=== PATIENT | female | born 1980 | race Caucasian/White ===

== ENCOUNTER 2016-11-21 22:15 | Emergency (ER) | payer MEDICAID ==
[~2016-11-21] VITALS: Ht 154.9 cm; Wt 103.0 kg
[~2016-11-21 22:15] MED LIST: CEPH-443 PO; HYDR-3498 PO; HYDR-906 PO; IBUP-1542 PO; INSU100C SQ; NPH,100V SQ; ONDA4TAB14 PO; PREN-39 PO
[2016-11-21 22:58] VITALS: Ht 154.9 cm; Wt 103.0 kg
[2016-11-22] MEDS ORDERED: UDROBDM PO (02:47)
--- NOTE | 2016-11-22 02:47 | ERD ---
ER Documentation Chief Complaint Date/Time DATE: 11/22/16 TIME: 02:45 Chief Complaint Fever and cough x3 days HPI This 36-year-old female presents to the emergency room for evaluation of a fever , chills and a cough for the past 3 days. The patient does state that she is approximately 16 weeks . She denies any phlegm production and came to the emergency room for further evaluation. She denies any chest pain palpitations or shortness of breath. ROS All systems reviewed and are negative except as per history of present illness. Medications Home Meds Active Scripts Ondansetron (Ondansetron Odt) 4 Mg Tab.rapdis, 4 MG PO Q8 Y for NAUSEA AND/OR VOMITING, #30 TAB Prov:MELLISSA BURK NP 08/19/16 Ibuprofen* (Motrin*) 600 Mg Tab, 600 MG PO Q6H Y for PAIN AND OR ELEVATED TEMP, #30 TAB Prov:MELLISSA BURK NP 08/19/16 Hydrocodone/Acetaminophen ([place] 5-325 Tablet) 1 Each Tablet, 1 TAB PO Q6H Y for PAIN, #20 TAB Prov:MELLISSA BURK NP 08/19/16 Ibuprofen* (Motrin*) 600 Mg Tab, 600 MG PO Q6, #20 TAB Prov:MEREDITH DON MD 11/24/15 Cephalexin* (Keflex*) 500 Mg Capsule, 500 MG PO QID for 10 Days, CAP Prov:MEREDITH DON MD 11/24/15 Hydrocodone Bit-Acetaminophen* ([place]*) 5-325 Mg Tab, 1 TAB PO Q6 Y for PAIN, # 14 TAB Prov:MEREDITH DON MD 11/24/15 Reported Medications Nph, Human Insulin Isophane (Humulin N) 100 Units/Ml Vial, 0 SQ HS, #20 08/12/13 Nph, Human Insulin Isophane (Humulin N) 100 Units/Ml Vial, 0 SQ AM, #20 08/12/13 Insulin Lispro (Humalog) 100 U/Ml Cartridge, 0 SQ DINNER, #14 08/12/13 Insulin Lispro (Humalog) 100 U/Ml Cartridge, 0 SQ AM, #12 08/12/13 Vits W-Ca,Fe,Fa(<1MG) ( Vitamins) 1 Tab Tablet, 1 TAB PO DAILY 08/12/13 Allergies Allergies: Coded Allergies: No Known Drug Allergy (Verified Allergy, Unknown, 08/18/16) Uncoded Allergies: NONE (Allergy, Unknown, 11/24/15) PMhx/Soc Medical and Surgical Hx: pt denies Medical Hx History of Surgery: Yes ( X1) Anesthesia Reaction: No Hx Neurological Disorder: No Hx Respiratory Disorders: No Hx Cardiac Disorders: No Hx Psychiatric Problems: No Hx Miscellaneous Medical Probl: No Hx Alcohol Use: No Hx Substance Use: No Hx Tobacco Use: No Smoking Status: Never smoker Physical Exam Vitals Vital Signs Date Time Temp Pulse Resp B/P Pulse Ox O2 Delivery O2 Flow Rate FiO2 11/21/16 22:58 98.4 80 18 145/80 99 Physical Exam Const: No acute distress Head: Atraumatic Eyes: Normal Conjunctiva ENT: Pharyngeal erythema, no visible exudate, normal External Ears, Nose and Mouth. Neck: Full range of motion..~ No meningismus. Resp: Clear to auscultation bilaterally Cardio: Regular rate and rhythm, no murmurs Abd: Soft, non tender, non distended. Normal bowel sounds Skin: No petechiae or rashes Back: No midline or flank tenderness Ext: No cyanosis, or edema Neur: Awake and alert Psych: Normal Mood and Affect Procedures/MDM This 36-year-old female presents to the ER for evaluation of a fever, and cough. This patient was afebrile here in the emergency room. She was 99% on room air, no visible respiratory distress. Her lungs were clear bilaterally. She did have mild nasal congestion. I advised her she is likely suffering from a viral syndrome and the patient was advised that she can take Robitussin-DM for her cough. She was given Robitussin in the emergency room and will be discharged home with a prescription for Robitussin-DM for upper respiratory infection. Departure Diagnosis: Primary Impression: Acute URI Additional Impression: Cough Condition: Stable NYLA ANTHONY DO Nov 22, 2016 02:46
[2016-11-22] MEDS ORDERED: GUAIFENESIN/DM 5ML CUP PO ONE (03:00)
[2016-11-22 03:29] VITALS: BP 135/74; PULSE 73; RESP 18; TEMP 98.2
== END 2016-11-22 03:35 | disposition home or self-care (01) ==
LOC: FTE 22:15
DX: O99.52 Diseases of the respiratory system complicating childbirth (principal); R05 Cough; J06.9 Acute upper respiratory infection, unspecified; Z3A.16 16 weeks gestation of pregnancy
CPT/HCPCS: Z7502; Z7610; 99283

== ENCOUNTER 2017-03-30 11:24 | Outpatient (CLI) | payer MEDICAID ==
[~2017-03-30] VITALS: Ht 157.5 cm; Wt 105.5 kg
[~2017-03-30 11:24] MED LIST changes: +UDROBDM PO
[2017-03-30 11:46] VITALS: Ht 157.5 cm; Wt 105.5 kg
[2017-03-30 11:47] VITALS: BP 156/88; PULSE 86; RESP 18
[2017-03-30] MEDS ORDERED: PRENAT PO (11:49)
[2017-03-30] MEDS ORDERED: LACTATED RINGER'S 1,000 ML IV ONE (12:00)
[2017-03-30 12:42] LABS: BASOPHILS % 0.3 % (0.0-2.0); EOSINOPHILS % 0.1 % (0.0-7.0); HEMATOCRIT 36.9 % (37.0-47.0); HEMOGLOBIN 12.1 g/dl (12.0-16.0); LYMPHOCYTES # 1.3 10^3/ul (0.8-2.9); LYMPHOCYTES % 17.4 % (15.0-51.0); MEAN CORPUSCULAR HEMOGLOBIN 25.1 pg (29.0-33.0); MEAN CORPUSCULAR HGB CONC 32.8 g/dl (32.0-37.0); MEAN CORPUSCULAR VOLUME 76.6 fl (82.0-101.0); MEAN PLATELET VOLUME 12.3 fl (7.4-10.4); MONOCYTE # 0.5 10^3/ul (0.3-0.9); MONOCYTES % 6.5 % (0.0-11.0); NEUTROPHIL # 5.6 10^3/ul (1.6-7.5); NEUTROPHILS % 75.2 % (39.0-77.0); PLATELET COUNT 241 10^3/UL (140-415); RED BLOOD COUNT 4.82 10^6/ul (4.20-5.40); WHITE BLOOD COUNT 7.5 10^3/ul (4.8-10.8)
[2017-03-30 12:46] LABS: INR 0.91; PROTIME 12.2 Sec (12.2-14.2)
[2017-03-30 12:47] LABS: PARTIAL THROMBOPLASTIN TIME 27.5 Sec (25.0-35.0)
[2017-03-30 12:53] LABS: ADD UMIC NO; UR ASCORBIC ACID NEGATIVE (NEGATIVE); UR BILIRUBIN (Dip) NEGATIVE (NEGATIVE); UR BLOOD (Dip) NEGATIVE (NEGATIVE); UR CLARITY CLEAR (CLEAR); UR COLOR STRAW (YELLOW); UR GLUCOSE (Dip) 1+ mg/dL (NEGATIVE); UR KETONES (Dip) NEGATIVE (NEGATIVE); UR LEUKOCYTE ESTERASE (Dip) NEGATIVE Leu/ul (NEGATIVE); UR NITRITE (Dip) NEGATIVE (NEGATIVE); UR SPECIFIC GRAVITY (Dip) 1.004 (1.003-1.030); UR TOTAL PROTEIN (Dip) NEGATIVE (NEGATIVE); UR UROBILINOGEN (Dip) NEGATIVE (NEGATIVE)
[2017-03-30 12:56] LABS: ALBUMIN 3.3 g/dl (3.3-4.9); ALBUMIN/GLOBULIN RATIO 1.06; BILIRUBIN,INDIRECT 0.1 mg/dl (0-1.1); BILIRUBIN,TOTAL 0.1 mg/dl (0.2-1.3); CREATININE 0.46 mg/dl (0.44-1.00); POTASSIUM 4.1 mmol/L (3.5-5.1); TOTAL PROTEIN 6.4 g/dl (6.1-8.1); URIC ACID 4.4 mg/dl (3.1-7.9)
[2017-03-30] MEDS ORDERED: LACTATED RINGER'S 1,000 ML IV SCH (13:30)
--- NOTE | 2017-03-30 14:29 | TRIAGE ---
OB Triage Datetime Report Generated by CPN: 03/30/2017 14:28 Datetime: 03/30/2017 13:00 Stage of : OB Triage Labor Evaluation Frequency: X4 Monitor Mode: External Duration (sec)2399: 70-80 Quality: Mild Pattern: Normal: <= 5 Contractions in 10 Minutes Resting Tone Bantam: Relaxed Heart Rate FHR Baseline Rate: 140 Monitor Mode: External US Variability: Moderate 6-25 bpm Accelerations: 15X15 Decelerations: Variable Category: Category II Pain Assessment Pain Scale: 0 Pain Presence: None/Denies Pain Type: N/A Pain Goal: 0 Datetime: 03/30/2017 12:15 Stage of : OB Triage Labor Evaluation Frequency: OCC Monitor Mode: External Duration (sec)2399: 70-80 Quality: Mild Pattern: Normal: <= 5 Contractions in 10 Minutes Resting Tone Bantam: Relaxed Heart Rate FHR Baseline Rate: 145 Monitor Mode: External US Variability: Moderate 6-25 bpm Accelerations: 15X15 Decelerations: None Category: Category I Pain Assessment Pain Scale: 0 Pain Presence: None/Denies Pain Type: N/A Pain Goal: 0 Datetime: 03/30/2017 11:40 Assessment Type: Triage Maternal Assessment Level of Consciousness: Fully Conscious DTR's/Clonus: DTRs 2+; No Clonus Headache: Denies Blurred Vision: No Respiratory Effort: Unlabored; Regular Rhythm; Equal Expansion Breath Sounds, Left: Clear and Equal Breath Sounds, Right: Clear and Equal Nausea/Vomiting: Denies RUQ Epigastric Pain: Denies Lower Extremities Edema: None Upper Extremities Edema: None Facial Edema: None Fall Risk Assessment History of Falling: (0) No Secondary Diagnosis: (0) No Ambulatory Aid: (0) Bedrest/Nurse Assist IV Therapy: (0) No Gait: (0) Normal/Bedrest/Immobile Mental Status: (0) Oriented to Own Ability Fall Score: 0 Fall Risk Score Definition: No Risk: No action required Datetime: 03/30/2017 11:37 Time of Arrival: 03/30/2017 11:18 EGA: 33.0 Arrived By: Ambulatory Arrived From: Other Unit in Hospital Movement: Present Contractions: Occasional Rupture of Membranes: Denies Vaginal Bleeding: None Vaginal Discharge: Denies Recent Sexual Intercouse: Denies Abdominal Trauma: Not Applicable Patient Complaints: None Initial Plan: MONITOR UCS, EFM, V/S
--- NOTE | 2017-03-30 15:16 | QN ---
Documentation Comment iup 33 weeks sent of ptl evaluation vss exam wnl nst reacitve a/p iup 33 weeks false labor dc home MAURICE MULLIGAN MD Mar 30, 2017 15:16
--- NOTE | 2017-03-30 17:46 | NSTRPT ---
NST Information Datetime Report Generated by CPN: 03/30/2017 17:46 Datetime: 03/30/2017 09:15 NST Information EGA: 33.0 Test Number: 3 Time on Monitor: 03/30/2017 09:56 Time off Monitor: 03/30/2017 11:02 NST Duration (Min): 66 Reason for NST: Diabetes Mellitus; Gestational Hypertension; Other Reason for NST Other: A1DM Test and Monitor Explained: Monitor Explained; Test Explained; Verbalized Understanding Pulse: 86 Resp: 18 SBP: 143 DBP: 75 Test Evaluation NST Interventions: PO Hydration Patient States Movement: Present Contraction Frequency: Q 8-15, PT DENIES FHR Baseline : 140 Variability: Moderate 6-25bpm Accelerations: 15X15 Decelerations: None FHR Category: Category I NST Results: Reactive Provider Notified: Dr Fry, Comments: To u/s, DOMINGO-22.4 vm, [id number] GMS, CEPH, 1100-Report to Dr Fry, order received to send to triage for IV hydration and schedule repeat N ST/DOMINGO for 04/02. POC explained to pt, states understanding and denies further questions at this time . 1108-To triage, accomp by Sanjuanita Grimes Electronically Signed By E-Signature: with User ID: [id number] Datetime: 03/26/2017 09:05 NST Information EGA: 32.3 NST Duration (Min): 40 Datetime: 03/23/2017 09:07 NST Information EGA: 32.0 Datetime: 03/23/2017 09:00 NST Duration (Min): 67
== END 2017-03-30 14:05 | disposition home or self-care (01) ==
LOC: OBT 11:24 → L-D 11:25 → OBT 14:05
PROVIDERS: ATTEND Obstetrics & Gynecology
DX: O47.03 False labor before 37 completed weeks of gestation, third trimester (principal); Z3A.33 33 weeks gestation of pregnancy
CPT/HCPCS: 36415; 80053; 81003; 84560; 85025; 85610; 85730; 96360; 96361; J7120; Z7500; G0463

== ENCOUNTER 2017-04-15 16:13 | Inpatient (IN) | END 2017-04-18 16:35 | disposition home or self-care (01) | DRG 775 | DX: O24.429 Gestational diabetes mellitus in childbirth, unspecified control (principal); E66.01 Morbid (severe) obesity due to excess calories; O14.14 Severe pre-eclampsia complicating childbirth; O99.214 Obesity complicating childbirth; Z68.39 Body mass index [BMI] 39.0-39.9, adult; O16.4 Unspecified maternal hypertension, complicating childbirth; Z3A.37 37 weeks gestation of pregnancy; Z37.0 Single live birth ==